=== PATIENT | female | born 1940 | race Caucasian/White ===

== ENCOUNTER → 2017-08-02 | Emergency (ER) | payer OTHER ==
[~2017-08-02] VITALS: Ht 160 cm; Wt 60.8 kg
[~2017-08-02] MED LIST: AMLODIPINE BESYL5 MG; ASA81 MG; ATACAND32 MG; ATACAND4 MG; ETODOLAC200 MG; KENALOG-1010 MG/ML; MILLIPRED DP5 M1; MOBIC15 MG PO; NORVASC2.5 M1; SKELAXIN400 MG; SYNTHROID50 MCG; TRAMADOL HCL-AP1 TAB PO; ULTRAM50 MG
== END | disposition home or self-care (01) ==
LOC: ER 15:24
DX: L30.8 Other specified dermatitis (principal)

== ENCOUNTER 2017-12-16 13:49 | Emergency (ER) | payer OTHER ==
[~2017-12-16] VITALS: Ht 160 cm; Wt 60.8 kg
[2017-12-16] MEDS ORDERED: ELIQUIS5 MG (14:06)
[2017-12-16] MEDS ORDERED: METOPROLOL SUCC50 MG (14:06)
[2017-12-16] MEDS ORDERED: DELTASONE20 MG (14:07)
[2017-12-16] MEDS ORDERED: DULOXETINE HCL20 MG (14:07)
== END 2017-12-16 15:16 | disposition home or self-care (01) ==
LOC: ER 13:49
DX: B02.8 Zoster with other complications (principal)

== ENCOUNTER → 2018-07-10 | Outpatient (CLI) | payer OTHER ==
[~2018-07-10] MED LIST changes: +DELTASONE20 MG; +DULOXETINE HCL20 MG; +ELIQUIS5 MG; +METOPROLOL SUCC50 MG
== END | disposition home or self-care (01) ==
LOC: NUCLEAR 10:54
DX: M81.0 Age-related osteoporosis without current pathological fracture (principal); M85.88 Other specified disorders of bone density and structure, other site

== ENCOUNTER → 2018-07-10 | Outpatient (CLI) | payer OTHER | END | disposition home or self-care (01) | LOC: MRI 12:46 | DX: M25.562 Pain in left knee (principal) | CPT/HCPCS: 73721 ==

== ENCOUNTER → 2019-03-07 | Outpatient (CLI) | payer OTHER | END | disposition home or self-care (01) | LOC: SONOGRAMA 09:14 | DX: E04.8 Other specified nontoxic goiter (principal) ==

== ENCOUNTER 2019-10-02 08:37 | Inpatient (IN) | payer OTHER ==
[~2019-10-02] VITALS: Ht 160 cm; Wt 63.0 kg
== END 2019-10-05 14:09 | disposition home or self-care (01) | DRG 390 ==
LOC: ER 08:37 → SURG 10-03 14:13
PROVIDERS: ADMIT Surgery; ATTEND Surgery
PROC: BW21ZZZ Computerized Tomography (CT Scan) of Abdomen and Pelvis (ICD-10-PCS; principal; 2019-10-02)
DX: K56.600 Partial intestinal obstruction, unspecified as to cause (principal)

== ENCOUNTER 2020-08-19 09:45 | Outpatient (CLI) | payer OTHER | END 2020-08-19 10:40 | disposition home or self-care (01) | LOC: OFIC 805 09:45 | PROVIDERS: ATTEND Otolaryngology Otology & Neurotology | DX: H92.03 Otalgia, bilateral (principal); H61.23 Impacted cerumen, bilateral; R49.0 Dysphonia; K21.9 Gastro-esophageal reflux disease without esophagitis; R59.0 Localized enlarged lymph nodes ==

== ENCOUNTER 2022-05-21 11:21 | Emergency (ER) | payer OTHER ==
[~2022-05-21] VITALS: Ht 160 cm; Wt 57.2 kg
== END 2022-05-21 15:28 | disposition home or self-care (01) ==
LOC: ER 11:21
DX: S73.102A Unspecified sprain of left hip, initial encounter (principal); X58.XXXA Exposure to other specified factors, initial encounter; Y93.89 Activity, other specified; Y92.018 Other place in single-family (private) house as the place of occurrence of the external cause; Y99.9 Unspecified external cause status; I10 Essential (primary) hypertension; Z88.0 Allergy status to penicillin; Z88.2 Allergy status to sulfonamides